=== PATIENT | female | born 1960 ===

== ENCOUNTER 2024-02-28 16:09 | Emergency (ER) | payer BC, OTHER ==
[~2024-02-28] VITALS: Ht 160 cm; Wt 76.0 kg
[2024-02-28 16:18] VITALS: TEMP 98.6; O2SAT 100
[2024-02-28 16:42] LABS: CLARITY URINE CLOUDY (CLEAR); COLOR URINE YELLOW (YELLOW); GLUCOSE URINE NEGATIVE (NEGATIVE); KETONES URINE NEGATIVE (NEGATIVE); LEUKOCYTE ESTERASE URINE 3+ (NEGATIVE); NITRITE URINE NEGATIVE (NEGATIVE); OCCULT BLOOD URINE 3+ (NEGATIVE); PROTEIN URINE 1+ (NEGATIVE); SPECIFIC GRAVITY URINE 1.004 (1.005-1.030); UROBILINOGEN URINE 0.2 E.U./dL (0.2-1.0)
[2024-02-28 16:59] LABS: BACTERIA URINE TRACE; SQUAMOUS EPITHELIAL CELL URINE RARE /lpf (RARE/1+); WBC URINE 25-50 /hpf (0-2)
[2024-02-28] MEDS ORDERED: CEFP100T8 MT (17:39)
[2024-02-28 17:52] VITALS: BP 139/90; PULSE 75; RESP 18; O2SAT 99
== END 2024-02-28 17:54 | disposition home or self-care (01) ==
LOC: ER 16:09
DX: N39.0 Urinary tract infection, site not specified (principal); Z90.710 Acquired absence of both cervix and uterus; Z98.890 Other specified postprocedural states
CPT/HCPCS: 81003; 87077; 87186; 99283